=== PATIENT | female | born 2000 | race Two or more races ===

== ENCOUNTER 2023-06-04 10:50 | Emergency (ER) | payer OTHER ==
[~2023-06-04] VITALS: Ht 167.6 cm; Wt 108.9 kg
[2023-06-04] MEDS ORDERED: KETOROLAC TROMETHAMINE 30 MG VIAL IM ONE (12:45)
[2023-06-04] MEDS ORDERED: AMOX-CLAV 875-1 EAC1 PO (12:47)
== END 2023-06-04 13:31 | disposition home or self-care (01) ==
LOC: ER 10:50
DX: N61.1 Abscess of the breast and nipple (principal)